=== PATIENT | male | born 1970 | race African-American/Black ===

== ENCOUNTER 2016-12-03 22:31 | Emergency (ER) | payer OTHER ==
[~2016-12-03] VITALS: Ht 167.6 cm; Wt 58.1 kg
[~2016-12-03 22:31] MED LIST: ADVIL200 MG PO; CELEBREX200 MG PO; PERCOCET 325 MG1 TA2 PO; ULTRAM(MONOGRAP50 MG PO
--- NOTE | 2016-12-03 23:05 | ED PSYCHIATRIC COMPLAINT ---
See Addendum History of Present Illness General Chief Complaint: ETOH/Drug Related Complaint Stated Complaint: HEROIN DETOX Source: patient, family Exam Limitations: no limitations Vital Signs & Intake/Output Vital Signs & Intake/Output Vital Signs Date Time Temp Pulse Resp B/P Pulse O2 O2 Flow FiO2 Ox Delivery Rate 12/03 2237 98.6 70 18 124/70 96 Room Air Allergies Coded Allergies: MDX - Pectin (PECTIN) (ANAPHYLAXIS 01/02/15) Reconcile Medications Ibuprofen (Advil) 200 MG TABLET 3 TAB PO DAILY PAIN (Reported) OXYCODONE HCL/ACETAMINOPHEN (Percocet 5-325 MG Tablet) 325 MG/5 MG TAB 1 TAB PO Q4-6 PRN PRN PAIN Triage Note: 46 YEAR OLD MALE STATES THAT HE HAS BEEN USING HEROINE DAILY FOR THE PAST COUPLE OF YEARS, STATES THAT HE USES ABOUT 6 BAGS AND THAT HE SNORTS IT, ALSO ADMITS TO USING COCAINE. LAST USED FRIDAY. COMPLAINS OF N/V , UNABLE TO EAT OR DRINK ANYTHING. STATES THAT HE CAN'T SLEEP. DENIES SI OR HI. PT DRY HEAVING IN TRIAGE. DENIES ETOG USE. Triage Nurses Notes Reviewed? yes HPI: Patient presents for evaluation of heroin withdrawal. Patient states that he typically uses 6 bags daily of IV heroin and has been doing this for many years. His last use of heroin was Friday (2 days ago). In addition he uses cocaine, last use about 1 week ago. He states he has been vomiting and unable to sleep. He is had virtually no oral intake. He states his back is hurting. Symptoms are described as severe more or less constant and nothing seems to make him feel better. He denies associated alcohol use. Past History Travel History Traveled to [place] past 21 day No Medical History Any Pertinent Medical History? 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 No Review of Systems Review of Systems Constitutional: Reports: no symptoms. EENTM: Reports: no symptoms. Respiratory: Reports: no symptoms. Cardiovascular: Reports: no symptoms. GI: Reports: see HPI. Genitourinary: Reports: no symptoms. Musculoskeletal: Reports: see HPI. Skin: Reports: no symptoms. Neurological/Psychological: Reports: no symptoms. Hematologic/Endocrine: Reports: no symptoms. Immunologic/Allergic: Reports: no symptoms. All Other Systems: Reviewed and Negative Physical Exam Physical Exam General Appearance: see below Neurological/Psychiatric: see below Comments: General: Alert, calm, cooperative Head: Normocephalic, atraumatic Eyes: Normal inspection, no nystagmus, EOMI Ears: Normal inspection Nose: Normal inspection Throat: Moist mucosa Neck: Supple, no goiter Heart: Regular rate and rhythm, no murmurs rubs or gallops Lungs: Clear to auscultation bilaterally with good air entry Abdomen: Soft nontender nondistended, normal bowel sounds Chest: Nontender Extremities: Normal range of motion grossly, mild tremors present, no cyanosis clubbing or edema of the upper extremities Neurologic: cranial nerves II through XII grossly intact, speech clear, gait normal Psychiatric: No apparent delusions or hallucinations, no pressured speech or thought blocking SAD PERSONS Done? patient not suicidal Progress Differential Diagnosis: drug withdrawal Plan of Care: Current Medications Sig/Ramona Start time Last Medication Dose Stop Time Status Admin Lorazepam 1 MG ONCE ONE 12/03 2329 UNVr (Ativan) 12/03 2330 Ondansetron HCl 4 MG ONCE ONE 12/03 2329 UNVr (Zofran) 12/03 2330 Symptomatic care. Follow up outpatient program. (LANCE MEADE,RICH Morales) Comments: yaneth declined evaluation by crisis. He does not feel the need for inpatient detox at this time. Departure Departure Disposition: HOME OR SELF CARE Condition: Stable Clinical Impression Primary Impression: Heroin withdrawal Secondary Impressions: Cocaine use Referrals: [facility] PATIENT HAS NO PRIMARY CARE DR (PCP/Family) Additional Instructions: Zofran as needed for nausea or vomiting. Ativan as needed for anxiety. Clonidine if needed for elevated heart rate or blood pressure. Follow-up with an outpatient detox program. Follow-up with the [facility] practice as soon as possible for general medical evaluation. Return if any concerns or sudden worsening. Thank you for choosing the [facility] for your care. It was a pleasure to serve you today. Rich Khan M.D. [facility] Departure Forms: Customer Survey General Discharge Information Prescriptions: Current Visit Scripts Ondansetron (Zofran Odt) 1 TAB SL Q6P PRN NAUSEA/VOMITING #10 TAB Lorazepam (Ativan) 1 TAB PO TID PRN withdrawal symptoms #9 TAB Clonidine HCl 1 TAB PO TID PRN heroin withdrawal #13 TAB
[2016-12-03] MEDS ORDERED: ATIVAN1 M1 PO (23:21)
[2016-12-03] MEDS ORDERED: ZOFRAN ODT4 M1 SL (23:21)
[2016-12-03] MEDS ORDERED: CLONIDINE HCL0.1 MG PO (23:21)
[2016-12-04] MEDS ORDERED: VISTARIL25 M1 PO (09:42)
[2016-12-04 10:13] VITALS: BP 116/56
== END 2016-12-04 11:32 ==
LOC: ERH 22:31
DX: F11.23 Opioid dependence with withdrawal (principal); F14.10 Cocaine abuse, uncomplicated
CPT/HCPCS: J2405; J3101

== ENCOUNTER 2016-12-07 12:37 | Emergency (ER) | payer OTHER ==
[~2016-12-07] VITALS: Ht 167.6 cm; Wt 54.4 kg
[~2016-12-07 12:37] MED LIST changes: +ATIVAN1 M1 PO; +CLONIDINE HCL0.1 MG PO; +VISTARIL25 M1 PO; +ZOFRAN ODT4 M1 SL
[2016-12-07 12:42] VITALS: BP 123/67
--- NOTE | 2016-12-07 13:00 | ED GENERAL ADULT ---
History of Present Illness General Chief Complaint: General Adult Stated Complaint: WITHDRAWL SYMPTOMS (HEROIN) Source: patient, old records Exam Limitations: no limitations Vital Signs & Intake/Output Vital Signs & Intake/Output Vital Signs Date Time Temp Pulse Resp B/P Pulse O2 O2 Flow FiO2 Ox Delivery Rate 12/07 1242 98.4 67 16 123/67 96 Room Air Allergies Uncoded Allergies: PECTIN (Severe, ANAPHYLAXIS 12/04/16) Reconcile Medications Clonidine HCl 0.1 MG TABLET 1 TAB PO TID PRN heroin withdrawal Hydroxyzine Pamoate (Vistaril) 25 MG CAPSULE 1 CAP PO TID PRN ANXIETY Ibuprofen (Advil) 200 MG TABLET 3 TAB PO DAILY PAIN (Reported) Lorazepam (Ativan) 1 MG TABLET 1 TAB PO TID PRN withdrawal symptoms Ondansetron (Zofran Odt) 4 MG TAB.RAPDIS 1 TAB SL Q6P PRN NAUSEA/VOMITING Promethazine HCl 12.5 MG TABLET 1 TAB PO Q6-8 PRN nausea Tramadol HCl 50 MG TABLET 1 TAB PO BIDP PRN pain Triage Note: PT STATES HE IS HAVING WITHDRAWELS FROM HEROIN STATES HE WAS SEEN IN ED THE OTHER DAY AND WAS GIVEN MED FOR NAUSEA. PT STATES HE IS HAVING BACK AND BODY PAIN. PT C/O N/V/D Triage Nurses Notes Reviewed? yes Onset: Gradual Duration: week(s):, constant Timing: recent history Injury Environment: home Severity: moderate Severity Numbers: 6 No Modifying Factors: none Associated Symptoms: nausea HPI: 46-year-old male presents emergency room for evaluation complaining of "withdrawal symptoms" patient states he was seen here last week for the same. He states he's been sober for the past 1 week off of heroin and cocaine. He states he took one dose of the clonidine however did not like to wait made him feel. He's been taking the Zofran with persistent nausea. He denies vomiting no abdominal pain chest pain dizziness lightheadedness. He denies any other drug or alcohol use. Patient is requesting something for his chronic back pain there's been no recent injury or trauma fall Past History Travel History Traveled to [place] past 21 day No Medical History Any Pertinent Medical History? 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 No Review of Systems Review of Systems Constitutional: Reports: see HPI. All Other Systems: Reviewed and Negative Comments Review of systems: See HPI, All other systems negative. Constitutional, no chills no fever, no malaise HEENT: no sore throat no congestion, Cardiovascular: No chest pain , no palpitation Skin, no jaundice no rashes, no change in skin Respiratory: No dyspnea no cough no sputum GI: No nausea no vomiting, no diarrhea : No dysuria Muscle skeletal: No joint pain, no back pain, no neck pain, Neurologic:no headache Psych: No stress Heme/endocrine: No bruising no bleeding Immunology: No lymphadenopathy Physical Exam Physical Exam General Appearance: well developed/nourished, no apparent distress, alert, awake , comfortable Comments: Well-developed well-nourished person in no acute distress HEENT: Normal EENT exam; PERRL, EOMI, no nystagmus. HEAD is atraumatic. moist mucous membranes. Neck: Supple, normal range of motion Back: Nontender, Full range of motion Cardiovascular: Regular rate and rhythms no murmurs rubs Respiratory: No respiratory distress. Patient speaking in full complete sentences. Breath sounds clear to auscultation bilaterally: NO W/R/R Abdomen: Soft, nontender nondistended, no appreciable organomegaly. Normal bowel sounds. No rebound/guarding, No appreciable enlargement of the abdominal aorta Extremity: No edema, full range of motion of extremities Neuro: Alert oriented x3, motor sensory normal, There were no obvious focal neurologic abnormalities. Skin: No appreciable rash on exposed skin, skin is warm and dry. Psych: Mood and affect is normal, memory and judgment is normal. Core Measures ACS in differential dx? No CVA/TIA Diagnosis: No Severe Sepsis Present: No Septic Shock Present: No Progress Differential Diagnoses I considered the following diagnoses in my evaluation of the patient: withdrawal , electrolyte abnormality drug intoxication and dehydration Plan of Care: Current Medications Sig/Ramona Start time Last Medication Dose Stop Time Status Admin Promethazine HCl 25 MG ONCE ONE 12/07 1330 UNVr (Phenergan 25MG 12/07 1331 Tablet) Tramadol HCl 50 MG ONCE ONE 12/07 1330 UNVr (Ultram) 12/07 1331 old records reviewed, pt declining wishing to speak with crisis again today. denies si/hi. Patient provided with tramadol Phenergan advise close follow-up with primary care physician bland diet patient is nontoxic afebrile he feels comfortable this plan. (FAUSTO GENTILE,MACY) Initial ED EKG: none Departure Departure Time of Disposition: 1316 Disposition: HOME OR SELF CARE Condition: Stable Clinical Impression Primary Impression: Heroin withdrawal Referrals: PATIENT HAS NO PRIMARY CARE DR (PCP/Family) [facility] Additional Instructions: tramadol for pain as needed, phenergan for nausea. bland diet. follow up with pmd dr castrejon this week. return with any concerns Departure Forms: Customer Survey General Discharge Information Prescriptions: Current Visit Scripts Promethazine HCl 1 TAB PO Q6-8 PRN nausea #20 TAB Tramadol HCl 1 TAB PO BIDP PRN pain #10 TAB Critical Care Note Critical Care Note Critical Care Time: non-applicable
[2016-12-07] MEDS ORDERED: TRAMADOL HCL50 M1 PO (13:19)
[2016-12-07] MEDS ORDERED: PROMETHAZINE12.5 M2 PO (13:19)
== END 2016-12-07 13:29 ==
LOC: ERH 12:37
DX: F11.23 Opioid dependence with withdrawal (principal)
CPT/HCPCS: J2405